=== PATIENT | male | born 1970 | race Caucasian/White ===

== ENCOUNTER 2023-02-07 14:01 | Emergency (ER) | payer OTHER ==
[~2023-02-07] VITALS: Ht 185.4 cm; Wt 114.0 kg
[2023-02-07 15:51] VITALS: BP 133/89
[2023-02-07] MEDS ORDERED: ACETAMINOPHEN 500 MG TAB PO ONE (16:45)
[2023-02-07] MEDS ORDERED: ACET1CAP14 PO (16:48)
== END 2023-02-07 17:23 | disposition home or self-care (01) ==
LOC: ER 14:01
DX: M77.51 Other enthesopathy of right foot and ankle (principal); I10 Essential (primary) hypertension; E78.5 Hyperlipidemia, unspecified; Z79.899 Other long term (current) drug therapy
CPT/HCPCS: 73630